=== PATIENT | male | born 1995 | race Caucasian/White ===

== ENCOUNTER → 2017-01-17 | Outpatient (CLI) | payer OTHER ==
--- NOTE | 2017-01-17 19:03 | REP ---
MAXILLOFACIAL CT WITHOUT CONTRAST: HISTORY: Nasal congestion. The sinuses are clear. The osteomeatal units are patent. The middle and inferior nasal turbinates are partially paradoxical. There is minimal deviation of the nasal septum to the left superiorly and to the right inferiorly. A spur is present arising from the right side of the nasal septum. The spur abuts the right inferior nasal turbinate. The cribriform plate, medial ibarra of the orbits and optic canals are intact. The carotid canals form a segment of the posterolateral ibarra of the sphenoid sinus. The adenoidal issue in the nasopharynx and the tonsils are somewhat prominent for the patients age. IMPRESSION: There is no acute or chronic sinusitis. Signed by Jose M Daley MD 01/17/2017 07:07 P
== END ==
LOC: M RAD 18:00
PROVIDERS: ATTEND Otolaryngology
DX: J02.9 Acute pharyngitis, unspecified (principal)

== ENCOUNTER 2017-03-10 07:18 | Day surgery (SDC) | payer OTHER ==
[~2017-03-10] VITALS: Ht 180.3 cm; Wt 64.0 kg
[2017-03-10] MEDS ORDERED: LR 1,000 ML IV ONE (07:30)
[2017-03-10] MEDS ORDERED: MIDAZOLAM INJ 2 MG/2 ML VIAL (J2250) As Ordered ONE (09:02)
[2017-03-10] MEDS ORDERED: fentaNYL 100 MCG/2 ML INJECTION (J3010) As Ordered ONE (09:02)
[2017-03-10] MEDS ORDERED: dexameTHASONE 4 MG/ML 1ML VIAL (J1100) As Ordered ONE ×3 (09:05→10:39)
[2017-03-10] MEDS ORDERED: ONDANSETRON 4MG/2ML VIAL (J2405) As Ordered ONE ×2 (09:05→10:39)
[2017-03-10] MEDS ORDERED: GLYCOPYRROLATE INJ 0.2 MG/ML 2 ML VIAL As Ordered ONE (09:05)
[2017-03-10] MEDS ORDERED: LIDOCAINE W/EPINEPHRINE 1% 20ML VIAL As Ordered ONE (09:52)
[2017-03-10] MEDS ORDERED: OXYMETAZOLINE NASAL SPRAY (AFRIN) As Ordered ONE ×2 (09:52→10:49)
[2017-03-10] MEDS ORDERED: METHYLENE BLUE 0.5% (5MG/ML) 10 ML AMP (PROVAYBLUE)(Q9968 PER 1MG) As Ordered ONE (09:53)
[2017-03-10] MEDS ORDERED: SODIUM CHLORIDE 0.9% NASAL GEL 15MG (AYR) As Ordered ONE ×2 (10:32→11:28)
[2017-03-10] MEDS ORDERED: ROCURONIUM BROMIDE 50 MG/5 ML VIAL As Ordered ONE (10:38)
[2017-03-10] MEDS ORDERED: PROPOFOL 200 MG/20 ML VIAL As Ordered ONE (10:38)
[2017-03-10] MEDS ORDERED: LIDOCAINE 2% INJ 100 MG/5 ML SDV (FOR ANES.) As Ordered ONE (10:39)
[2017-03-10] MEDS ORDERED: hydrALAZINE INJ 20 MG/ML VIAL As Ordered ONE (10:50)
--- NOTE | 2017-03-10 11:57 | ROOPDOC ---
[facility] Report Of Operation Report of Operation DATE OF PROCEDURE: 03/10/17 PREPROCEDURE DIAGNOSES: [Septal deviation, nasal obstruction and significant adenoid hypertrophy filling in the nasal choanae bilaterally.]. POSTPROCEDURE DIAGNOSES: [Septoplasty, partial adenoidectomy with the removal of the adenoid tissue entering the nasal choanae and bilateral cautery of the inferior turbinates]. PROCEDURE: [#1 a septoplasty #2. Partial adenoidectomy. #3 is bilateral, inferior turbinate cauterization]. SURGEON: [Nael Espana Jr.], ORACLE R12 DEVELOPER: [None. ], MD ANESTHESIA: [Gen. endotracheal tube]. ESTIMATED BLOOD LOSS: Approximately [75 mL] mL. COMPLICATIONS: [None]. REMARKS: [Massive adenoid tissue filling into the choanae causing bilateral obstruction of the nasal cavity]. PROCEDURE NOTE: [With the patient in supine position after being induced, intubated, prepped and draped in usual fashion, attention then was drawn to prepping the nose and decongesting the nasal cavity. Topical Afrin was placed with pledgets and then 4 mL of 1% lidocaine with 1-100,000 epinephrine was injected with a 27-gauge needle bilaterally and to the septum. There is a large bony inferior septal spur obstructing the right side with some caudal septal deviation present. A left hemitransfixion incision was performed. The mucoperichondrium and mucoperiosteum was elevated on a cartilaginous junction was were and the mucoperiosteal pockets were elevated as well. Brandywine- Agee was used to remove the inferior portion of the bony maxillary crest and septum going to the right. The Brandywine Sandeep forcep was used to remove more superior bone. A small incision was made posteriorly were part of the cartilage was deflecting to the right approximately 2 cm of posterior cartilage was removed and then morcellized and replaced into proper position. Next, attention was then drawn to the adenoid component which was filling up the nasal choanae. A straight shot 4 mm microdebrider was used to remove the adenoid tissue that was filling the left nasal cavity, which is was coming through the nasal choanae, which was compatible with massive hypertrophy of the adenoid tissue. This was caught in a sock and will be sent for pathology. The area was cauterized to prevent any further bleeding on the left side. In a similar fashion, the right adenoid tissue was filling up the nasal choanae and going into the nasal cavity posteriorly. This was also removed with a 4 mm microdebrider in an controlled vision under 0 endoscopic visualization and then utilizing the suction cautery was cauterized to control the bleeding. Cautery was set at 35 with the suction cautery. The reflex 45 wand was coated with saline gel and then placed in the inferior turbinate on the left as well as the right side nasal pore packing was placed, slightly posterior, which was trimmed and cut. In addition, Byrnes nasal packs were placed and sutured transseptally with 4-0 nylon. Left hemitransfixion incision had been previously closed with 2 septal columellar stitches with 3-0 chromic. At this point, bleeding was under control. The patient was cleaned and turned over to the anesthesiologist.]. DESCRIPTION OF PROCEDURE: . NAEL ESPANA MD Mar 10, 2017 11:57
[2017-03-10] MEDS ORDERED: fentaNYL 100 MCG/2 ML INJECTION (J3010) IV PRN (12:15)
[2017-03-10] MEDS ORDERED: ONDANSETRON 4MG/2ML VIAL (J2405) IV PRN (12:15)
[2017-03-10] MEDS ORDERED: LR 1,000 ML IV SCH (12:15)
[2017-03-10] MEDS ORDERED: PERCOCET 5MG/325MG TAB As Ordered ONE (12:32)
[2017-03-10] MEDS ORDERED: PERCOCET 5MG/325MG TAB PO PRN (12:45)
[2017-03-10] MEDS ORDERED: METOCLOPRAMIDE INJ 10MG/2ML VIAL (J2765) As Ordered ONE (12:59)
[2017-03-10] MEDS ORDERED: METOCLOPRAMIDE INJ 10MG/2ML VIAL (J2765) IV ONE (13:15)
[2017-03-10 14:47] VITALS: BP 120/60
== END 2017-03-10 14:55 | disposition home or self-care (01) ==
LOC: M SDC 07:18
PROVIDERS: ATTEND Otolaryngology
DX: J34.2 Deviated nasal septum (principal); J35.2 Hypertrophy of adenoids; J34.89 Other specified disorders of nose and nasal sinuses; J30.9 Allergic rhinitis, unspecified; R09.81 Nasal congestion; G47.37 Central sleep apnea in conditions classified elsewhere; R06.83 Snoring; Z72.0 Tobacco use
CPT/HCPCS: 30520; 30801; 42836; 88302; 96374; 96375; J1100; J2250; J2405; J2765; J3010; Q9968

== ENCOUNTER 2018-01-03 08:05 | Day surgery (SDC) | payer OTHER ==
[2018-01-03] MEDS: LR 1,000 ML IV (08:35)
[2018-01-03] MEDS ORDERED: MIDAZOLAM INJ 2 MG/2 ML VIAL (J2250) As Ordered (09:09)
[2018-01-03] MEDS ORDERED: dexameTHASONE 4 MG/ML 1ML VIAL (J1100) As Ordered ×2 (09:09→09:19)
[2018-01-03] MEDS ORDERED: SEVOFLURANE INHAL SOLN 250 ML BTL As Ordered (09:09)
[2018-01-03] MEDS ORDERED: ONDANSETRON 4MG/2ML VIAL (J2405) As Ordered (09:09)
[2018-01-03] MEDS ORDERED: DESFLURANE 240 ML INHALANT As Ordered (09:09)
[2018-01-03] MEDS ORDERED: METOCLOPRAMIDE INJ 10MG/2ML VIAL (J2765) As Ordered (09:09)
[2018-01-03] MEDS ORDERED: fentaNYL 100 MCG/2 ML INJECTION (J3010) As Ordered ×2 (09:09→09:20)
[2018-01-03] MEDS ORDERED: LIDOCAINE 2% INJ 100 MG/5 ML SDV (FOR ANES.) As Ordered (09:09)
[2018-01-03] MEDS: LIDOCAINE 1% MDV 20ML VIAL As Ordered (09:35)
[2018-01-03] MEDS: BUPIVACAINE HCL 0.5% 10 ML VIAL As Ordered (09:36)
[2018-01-03] MEDS ORDERED: HYDROcodone/APAP LIQUID 7.5-325MG 15ML UDC (LORTAB ELIXIR) PO (10:15)
[2018-01-03] MEDS ORDERED: ONDANSETRON 4MG/2ML VIAL (J2405) IV (10:15)
[2018-01-03] MEDS ORDERED: LR 1,000 ML IV (10:15)
[2018-01-03] MEDS ORDERED: fentaNYL 100 MCG/2 ML INJECTION (J3010) IV (10:15)
[2018-01-03] MEDS ORDERED: PERCOCET 5MG/325MG TAB PO (10:15)
== END 2018-01-03 11:08 | disposition home or self-care (01) ==
LOC: M SDC 08:05
DX: J35.01 Chronic tonsillitis (principal); J35.8 Other chronic diseases of tonsils and adenoids; G47.30 Sleep apnea, unspecified
CPT/HCPCS: 42821